=== PATIENT | male | born 1945 | race Caucasian/White ===

== ENCOUNTER 2024-06-26 06:15 | Day surgery (SDC) | payer MEDICARE, SELFPAY ==
[2024-06-26 08:00] LABS: Glucose - Point of Care 108 mg/dl (70-99)
== END 2024-06-26 09:26 | disposition home or self-care (01) ==
LOC: GI 06:15
PROVIDERS: ATTENDING PHYSICIAN Specialist
DX: Z12.11 Encounter for screening for malignant neoplasm of colon (principal); K57.30 Diverticulosis of large intestine without perforation or abscess without bleeding; K63.5 Polyp of colon; Z80.0 Family history of malignant neoplasm of digestive organs
CPT/HCPCS: 45380; 88305; 82962